=== PATIENT | male | born 1995 | race Caucasian/White ===

== ENCOUNTER 2019-10-16 00:32 | Inpatient (IN) | payer MEDICAID, SELFPAY ==
[2019-10-16] VITALS (18 sets, daily range): BP systolic 105–125; BP diastolic 64–86; PULSE 74–117; RESP 15–22; TEMP 36.6–37.5; O2SAT 10–100; BMI 19.1
--- NOTE | ~2019-10-16 | XR_ITS ---
EXAMINATION: XR ribs LT 2V w CXR 2V INDICATION: Left axillary and rib pain TECHNIQUE: PA COMPARISON: 04/20/2012 FINDINGS: A somewhat wedge-shaped, pleural-based airspace opacity is present in the left lower lobe. No pleural effusion or pneumothorax is identified. The cardiomediastinal silhouette is normal. The vi sualized osseous structures are unremarkable. IMPRESSION: 1. Left lower lobe airspace opacity which could be infectious/inflammatory or possibly pulmonary infa rct. CTA of the pulmonary arteries has been performed at the time of interpretation and will be repor mary separately. Reviewed, dictated and finalized at location A. IMPRESSION: 1. Left lower lobe airspace opacity which could be infectious/inflammatory or p ossibly pulmonary infarct. CTA of the pulmonary arteries has been performed at the time of interpretation and will be reported separately.
--- NOTE | ~2019-10-16 | CT_ITS ---
EXAMINATION: CTA chest PE protocol DATE: 10/16/2019 03:22 INDICATION: Shortness of breath and chest pain, recent drug use TECHNIQUE: Computed tomography angiography (CTA) of the chest was performed with 100 mL Omnipaque-350 intravenous contrast timed to evaluate the pulmonary arteries. Coronal maximum intensity projection 3D-reconstructions were created by the technologist. The dose-length product (DLP) was 201.54 mGy-cm. Automated exposure control and iterative reconstruction technique were employed. COMPARISON: None. FINDINGS: The pulmonary arteries are well-opacified. There are filling defects in subsegmental pulmon ramu artery branches of the left lower lobe. There is wedge-shaped, pleural-based airspace opacity in the distribution of the affected pulmonary artery distribution. In addition, there are multiple nodul es throughout the lungs, which measure up to 2.4 cm, some of which demonstrate central cavitation. Th ere is no pleural effusion or pneumothorax. The heart size is normal. There is mild left hilar lympha denopathy. IMPRESSION: 1. Pulmonary embolism in the subsegmental branches of the left lower lobe. 2. Wedge-shaped airspace opacity in the distribution of the affected pulmonary artery segment raises concern for pulmonary infarct. 3. Multiple pulmonary nodules scattered throughout the lungs, some of which demonstrate cavitation, c onsistent with infection/inflammation. Given history of drug use, septic emboli are a consideration. These findings were discussed with Dr. Shay Butts MD in the Emergency Department at 0351 hour s on 10/16/2019 by the [employer] Radiologist. Reviewed, dictated and finalized at location A. IMPRESSION: 1. Pulmonary embolism in the subsegmental branches of the left lower lobe. 2. Wedge-shaped airspace opacity in the distribution of the affected pulmonary artery segment raises concern for pulmonary infarct. 3. Multiple pulmonary nodules scattered throughout the lungs, some of which dem onstrate cavitation, consistent with infection/inflammation. Given history of d rug use, septic emboli are a consideration. These findings were discussed with Dr. Shay Butts MD in the Emergency D epartment at 0351 hours on 10/16/2019 by the [employer] Radiologist.
--- NOTE | 2019-10-16 02:26 | ED.GENADULT ---
HPI - General Adult General Chief complaint: Unspecified Stated complaint: Unspecified Time Seen by Provider: 10/16/19 02:03 History of Present Illness HPI narrative: Patient is a 24-year-old male who presents ER with left-sided chest pain. Ongoing over the last couple of weeks but significantly worsening over the last 2 days. Patient reports he has been using methamphetamine for several weeks and last used intravenous fentanyl 1-1/2 weeks ago. Denies any runny nose/sore throat but he has been having persisting cough with dyspnea. No lower extremity swelling. Pain is worse with any type of movement and with inhaling. No alleviating factors. Related Data Allergies Allergy/AdvReac Type Severity Reaction Status Date / Time codeine Allergy Mild UNKNOWN Verified 07/26/16 05:42 APPLE PEELINGS Allergy Mild THROAT Uncoded 12/30/13 19:30 ADRIEN Review of Systems Review of Systems: All systems reviewed & are unremarkable except as noted in HPI and below Constitutional: Constitutional: Denies chills, Denies fever(s) and Denies weakness ENT: Denies nasal congestion and Denies sore throat Cardiovascular: Cardiovascular: Reports chest pain, Denies rapid heart rate and Denies radiating jaw, neck or arm pain Respiratory: Respiratory: Reports cough, Reports dyspnea and Denies wheezing Gastrointestinal: Gastrointestinal: Denies abdominal pain, Denies diarrhea, Denies nausea and Denies vomiting PMFSH Past Medical History Medical History (Updated 10/16/19 @ 05:20 by Shay Butts MD) Asthma History of gastroschisis Surgical History Surgical History (Updated 10/16/19 @ 05:16 by Shay Butts MD) H/O abdominal surgery Gastroschisis repair Social History Social History (Updated 10/16/19 @ 05:16 by Shay Butts MD) Substance use type: amphetamines, opiates, IV drugs and methamphetamine Gender identity (if verbalized by the patient): Male Exam Narrative: Exam Narrative: GENERAL: Uncomfortable-appearing, well-nourished, and in no acute distress. HEAD: Normocephalic, atraumatic. EYES: PERRL and EOMI. ENT: Mucous membranes moist. CHEST: Clear to auscultation. No respiratory distress but has significant pain with inhaling. HEART: Tachycardic and regular. No murmur heard. Normal peripheral pulses. ABDOMEN: Soft, nontender, nondistended, normal active bowel sounds. EXTREMITIES: Normal range of motion. No edema. SKIN: Warm, dry, no rash. NEURO: Alert and oriented x3. Course Course Emergency Course: Patient informed of diagnosis and treatment plan. Will start on vancomycin for possible septic emboli that could be a result of endocarditis from IV drug abuse. Dr. Cobb order an echocardiogram for tomorrow and requests COVID swab. Patient will also be started on heparin for pulmonary embolism.. Vital Signs Vital signs: Vital Signs Temperature 98.3 F 10/16/19 00:34 Pulse Rate 117 H 10/16/19 00:34 Respiratory Rate 20 10/16/19 00:34 Blood Pressure 117/71 10/16/19 00:34 Pulse Oximetry 96 10/16/19 00:34 Temperature 98.3 F 10/16/19 00:34 Pulse Rate 82 10/16/19 04:56 Respiratory Rate 18 10/16/19 04:56 Blood Pressure 106/67 10/16/19 04:56 Pulse Oximetry 98 10/16/19 04:56 Medical Decision Making Vital Signs Vital Signs: Vital Signs Temperature 98.3 F 10/16/19 00:34 Pulse Rate 117 H 10/16/19 00:34 Respiratory Rate 20 10/16/19 00:34 Blood Pressure 117/71 10/16/19 00:34 Pulse Oximetry 96 10/16/19 00:34 Temperature 98.3 F 10/16/19 00:34 Pulse Rate 82 10/16/19 04:56 Respiratory Rate 18 10/16/19 04:56 Blood Pressure 106/67 10/16/19 04:56 Pulse Oximetry 98 10/16/19 04:56 Lab Data Result diagrams: 10/16/19 02:35 10/16/19 02:35 Labs: Lab Results 10/16/19 10/16/19 10/16/19 Range/Units 02:35 02:35 02:35 WBC 11.9 H (4.5-10.0) K/mm3 RBC 3.87 L (4.6-6.20) M/mm3 Hgb 10.3 L (14.0-
[2019-10-16 02:44] LABS: Basophils Percent Auto 0.3 % (0.2-1.2); Eosinophils Absolute Auto 0.1 K/mm3 (0-0.3); Eosinophils Percent Auto 0.5 % (0-4.4); Hematocrit 31.2 % (42.0-52.0); Hemoglobin 10.3 g/dL (14.0-18.0); Immature Granulocyte Absolute 0.17 K/mm3 (0.00-0.031); Immature Granulocyte Percent A 1.4 % (0-0.5); Lymphocytes Absolute Auto 1.34 K/mm3 (0.9-3.2); Lymphocytes Percent Auto 11.3 % (18.3-44.2); Mean Corpuscular Hemoglobin 26.6 pg (26-34); Mean Corpuscular Volume 80.6 fl (80-100); Monocytes Absolute Auto 0.8 K/mm3 (0.1-0.6); Neutrophils Absolute Auto 9.5 K/mm3 (1.3-6.7); Neutrophils Percent Auto 79.5 % (45.5-73.1); Platelet Count Result 265 k/mm3 (150-375); Red Blood Count 3.87 M/mm3 (4.6-6.20); Red Cell Distribution Width 13.8 % (11.5-14.5); White Blood Count 11.9 K/mm3 (4.5-10.0)
[2019-10-16] MEDS: MORPHINE SULFATE 4 MG/ML INJ IV PUSH ×6 (02:46→20:21)
[2019-10-16 02:52] LABS: INR 1.4; Prothrombin Time 16.8 Seconds (11.1-14.7)
[2019-10-16 02:53] LABS: Partial Thromboplastin Time 45.4 SECONDS (22.3-36.8)
[2019-10-16 03:04] LABS: Anion Gap 8 mmol/L (8-16); Blood Urea Nitrogen 11 mg/dL (9-20); Calcium 8.3 mg/dL (8.4-10.2); Carbon Dioxide 26 mmol/L (22-30); Chloride 99 mmol/L (98-107); Estimated Glomerular Filt Rate > 60; Glucose 123 mg/dL (75-110); Potassium 3.9 mmol/L (3.4-5.0); Sodium 133 mmol/L (137-145)
[2019-10-16] MEDS: KETOROLAC 30 MG/ML VIAL (*BKC) IV PUSH (03:48)
[2019-10-16] MEDS: HEPARIN SODIUM 5,000 UNITS/ML VIAL 5500 UNITS IV PUSH (04:46)
[2019-10-16] MEDS: HEPARIN SOD/D5W 100 UNITS/ML 25,000 UNITS/250 ML BAG 12 UNITS IV CONT (04:46)
--- NOTE | 2019-10-16 06:49 | ADMGEN ---
This patient, Tyrone Bermeo, was admitted to Intensive Care Unit-5 10/16/2019 at 0615. Patient/family oriented to hospital policies and general routines including ID bracelet, bed and alarms, visiting hours, pain management, procedures, bathroom and other care routines, personal items, smoking policy, room service/diet, and visiting hours. Valuables list has been completed. Information on how to activate the Rapid Response Team has been discussed. Patient/Family are encouraged to report perceived risks to care and to ask questions if they do not understand what they are told or what they should do.
[2019-10-16 11:24] LABS: Partial Thromboplastin Time 52.3 SECONDS (22.3-36.8)
[2019-10-16 11:31] LABS: Magnesium 2.3 mg/dL (1.6-2.3)
[2019-10-16 13:13] LABS: SARS-CoV-2 RNA PCR Negative
--- NOTE | 2019-10-16 16:31 | PM.IMHP ---
H&P: HPI History of Present Illness Date/Time: 10/16/19 16:31 Chief complaint: pulmonary embolism, septic emboli, covid pui Narrative: Tyrone Bermeo is a 24 year old male with history of illicit drug abuse presented emergency department with a complaint of left-sided chest pain for over 2 weeks and progressively getting worse patient states that he has been using amphetamine on daily basis for last 2 weeks, week ago he used IV fentanyl, patient denies any complaint of shortness of breath runny nose cough, COVID test was done and is negative, patient had a CTA of the chest showed patient has pulmonary emboli patient started on heparin drip, concerning for septic emboli due to IV drug use patient started on vancomycin, currently patient complains of chest pain patient is being treated with morphine, patient denies any fever or chills Review of Systems Review of Systems: All systems reviewed & are unremarkable except as noted in HPI and below PMFSH Past Medical History Medical History (Updated 10/16/19 @ 05:20 by Shay Butts MD) Asthma History of gastroschisis Surgical History Surgical History (Updated 10/16/19 @ 05:16 by Shay Butts MD) H/O abdominal surgery Gastroschisis repair Family History Family History (Updated 10/16/19 @ 06:28 by Jaida Colbert RN) Father Heart disease Myocardial infarct Schizophrenia Mother Asthma Grandparent Heart disease Diabetes mellitus Social History Social History (Updated 10/16/19 @ 05:16 by Shay Butts MD) Smoking packs per day: 0.5 Smoking cigarettes per day: 10.0 Years smoked: 10 Smoking pack-years: 5.00 Smoking status: Current every day smoker Tobacco type: cigarettes Second hand tobacco smoke exposure: No Smoking end date: 10/16/19 Alcohol intake: never Substance use: current Substance use type: marijuana and methamphetamine Other substance usage details: Fentanyl Gender identity (if verbalized by the patient): Male Spiritual care concerns: No Meds Home Medications and Allergies Allergies Allergy/AdvReac Type Severity Reaction Status Date / Time codeine Allergy Mild UNKNOWN Verified 07/26/16 05:42 APPLE PEELINGS Allergy Mild THROAT Uncoded 12/30/13 19:30 SWELLS Vital Signs Vital Signs - 24 hr 10/16/19 00:34 10/16/19 01:51 10/16/19 02:45 Temperature 98.3 F Pulse Rate 117 H 103 H 92 Respiratory Rate 20 19 19 Blood Pressure 117/71 125/64 115/86 Pulse Oximetry 96 98 98 10/16/19 03:25 10/16/19 04:07 10/16/19 04:56 Temperature Pulse Rate 89 98 82 Respiratory Rate 19 21 H 18 Blood Pressure 113/76 114/68 106/67 Pulse Oximetry 98 10 L 98 10/16/19 05:44 10/16/19 05:46 10/16/19 06:07 Temperature 98.3 F Pulse Rate 74 79 Respiratory Rate 19 18 Blood Pressure 106/67 106/67 Pulse Oximetry 98 98 100 10/16/19 06:23 10/16/19 08:00 10/16/19 10:00 Temperature 97.8 F 98.3 F Pulse Rate 80 82 85 Respiratory Rate 15 16 Blood Pressure 105/70 114/83 Pulse Oximetry 100 98 10/16/19 12:00 10/16/19 16:00 Temperature 98.1 F 99.1 F Pulse Rate 99 92 Respiratory Rate 16 22 H Blood Pressure 117/86 113/78 Pulse Oximetry 100 99 Exam Narrative: Exam Narrative: patient appears chronically ill and malnourished older than his age Const: General: no acute distress and uncomfortable HENMT: General nose exam: Normal nares present Mouth: Yes moist mucous membranes Eyes: General: appearance normal, both eyes and all related structures Sclera: sclerae normal Neck: Neck: supple Resp: Other: bilateral fair air entry with rhonchi Cardio: Rate: regular rate Rhythm: regular rhythm GI: GI Palp: Yes Soft to palpation Auscultation: normal bowel sounds Skin: General skin exam: normal color Neuro: Speech: normal speech Sensory Exam: normal sensation Extrem: General: normal to inspection Psych: Affect: Anxious affect present H&P: Results Labs Labs: Short CBC
[2019-10-16 18:17] LABS: Partial Thromboplastin Time 58.1 SECONDS (22.3-36.8)
--- NOTE | 2019-10-16 18:23 | PC.NURSE ---
This patient, Tyrone Bermeo, was transferred to [facility] on 10/16/19 at 1818 . Personal belongings sent with patient. Report given to Abi MAX. Appropriate documentation sent with patient.
--- NOTE | 2019-10-16 18:30 | PC.NURSE ---
Received patient from ICU via wheelchair. Patient settled in room.
[2019-10-16] MEDS: HEPARIN SODIUM 5,000 UNITS/ML VIAL 2500 UNITS IV PUSH (18:42)
[2019-10-16] MEDS: HEPARIN SOD/D5W 100 UNITS/ML 25,000 UNITS/250 ML BAG 16 UNITS IV CONT (23:22)
[2019-10-17] VITALS (9 sets, daily range): BP systolic 111–127; BP diastolic 68–75; PULSE 105–118; RESP 16–18; TEMP 37–37.5; O2SAT 96–98
--- NOTE | 2019-10-17 | ECHO_ITS ---
Patient Info Name: Tyrone Bermeo Age: 24 years : 1995 Gender: Male Ht: 72 in Wt: 140 lbs BSA: 1.78 m2 HR: 107 bpm BP: 127 / 68 mmHg Heart Rhythm: Sinus Rhythm Technical Quality: Good Exam Date: 10/17/2019 11:07 AM Exam Location: [facility] Patient Status: Inpatient Admit Date: 10/16/2019 Staff Ordering Physician: Kofi Okeefe MD Laceworker: Genie Montesinos RCS Attending Provider: Albin Chisholm MD Exam Type: CA echo doppler color flow Study Info Indications - syncope hx/o IV drug abuse Complete two-dimensional, color flow and Doppler transthoracic echocardiogram is performed. Summary 1. Complete two-dimensional, color flow and Doppler transthoracic echocardiogram is performed. 2. Left ventricular chamber dimension is normal. 3. Left ventricular systolic function is normal, estimated at 60-65%. 4. There is no increased left ventricular wall thickness. 5. The left ventricular diastolic function is normal. 6. Right ventricular chamber dimension is mildly enlarged. 7. There is mild tricuspid valve regurgitation. 8. Mild pulmonary hypertension, estimated pulmonary arterial systolic pressure is 38 mmHg. 9. Large tricuspid valve vegetation visualized. 10. 2.5 x 2.1 cm large hypermobile tricuspid valve vegetation is seen. Left Ventricle Left ventricular chamber dimension is normal. Left ventricular systolic function is normal, estimated at 60-65%. There is no increased left ventricular wall thickness. The left ventricular diastolic function is normal. Right Ventricle Right ventricular chamber dimension is mildly enlarged. Right ventricular systolic function is normal. Left Atria Left atrial chamber dimension is normal. Right Atria Right atrial chamber dimension is normal. Atrial Septum Intact interatrial septum visualized by color flow imaging. Aortic Valve The aortic valve is probable trileaflet. There is no aortic valve sclerosis. There is no aortic valve stenosis. There is trace aortic valve regurgitation. Pulmonic Valve The pulmonic valve is normal. There is no pulmonic valve stenosis. There is trace pulmonic regurgitation. Mitral Valve The mitral valve has normal leaflets. There is no mitral valve stenosis. There is trace mitral valve regurgitation. Tricuspid Valve There is no significant tricuspid valve stenosis. There is mild tricuspid valve regurgitation. Mild pulmonary hypertension, estimated pulmonary arterial systolic pressure is 38 mmHg. Large tricuspid valve vegetation visualized. 2.5 x 2.1 cm large hypermobile tricuspid valve vegetation is seen. Pericardium/Pleural The pericardium appears normal. There is no pericardial effusion. Aorta The aortic root size at the sinus of Valsalva is normal. The prox ascending aorta size is normal. Left Ventricular Outflow Tract Name Value Normal LVOT 2D LVOT Diameter 2.0 cm LVOT Doppler LVOT Peak Gradient 5 mmHg LVOT Mean Gradient 3 mmHg LVOT VTI 20 cm LVOT VTI/AV VTI Ratio
[2019-10-17] MEDS: MORPHINE SULFATE 4 MG/ML INJ IV PUSH ×5 (00:12→13:48)
[2019-10-17 01:09] LABS: Partial Thromboplastin Time 59.7 SECONDS (22.3-36.8)
[2019-10-17] MEDS: HEPARIN SODIUM 5,000 UNITS/ML VIAL 2500 UNITS IV PUSH ×2 (01:17→13:59)
[2019-10-17 07:12] LABS: Basophils Absolute Auto 0.1 K/mm3 (0.0-0.1); Basophils Percent Auto 0.5 % (0.2-1.2); Eosinophils Absolute Auto 0.1 K/mm3 (0-0.3); Eosinophils Percent Auto 0.7 % (0-4.4); Hematocrit 30.6 % (42.0-52.0); Hemoglobin 9.9 g/dL (14.0-18.0); Immature Granulocyte Absolute 0.18 K/mm3 (0.00-0.031); Immature Granulocyte Percent A 1.4 % (0-0.5); Lymphocytes Percent Auto 18.9 % (18.3-44.2); Mean Corpuscular HGB Conc 32.4 g/dl (32-36); Mean Corpuscular Hemoglobin 25.9 pg (26-34); Mean Corpuscular Volume 80.1 fl (80-100); Mean Platelet Volume 9.5 fl (7.4-10.4); Monocytes Absolute Auto 1.3 K/mm3 (0.1-0.6); Neutrophils Absolute Auto 9.1 K/mm3 (1.3-6.7); Neutrophils Percent Auto 68.5 % (45.5-73.1); Platelet Count Result 321 k/mm3 (150-375); Red Blood Count 3.82 M/mm3 (4.6-6.20); Red Cell Distribution Width 13.8 % (11.5-14.5); White Blood Count 13.2 K/mm3 (4.5-10.0)
[2019-10-17 07:22] LABS: Partial Thromboplastin Time 71.5 SECONDS (22.3-36.8)
[2019-10-17 07:26] LABS: Alanine Aminotransferase 19 U/L (4-50); Albumin Level 3.2 g/dL (3.5-5.1); Alkaline Phosphatase 109 U/L (38-126); Anion Gap 6 mmol/L (8-16); Aspartate Amino Transferase 23 U/L (17-59); Bilirubin,Total 0.5 mg/dL (0.2-1.3); Blood Urea Nitrogen 8 mg/dL (9-20); Calcium 8.5 mg/dL (8.4-10.2); Carbon Dioxide 25 mmol/L (22-30); Chloride 98 mmol/L (98-107); Estimated CRCL calculation 112 ml/min; Estimated Glomerular Filt Rate > 60; Glucose 130 mg/dL (75-110); Potassium 4.1 mmol/L (3.4-5.0); Sodium 129 mmol/L (137-145)
[2019-10-17 13:17] LABS: Partial Thromboplastin Time 66.1 SECONDS (22.3-36.8)
[2019-10-17] MEDS: HEPARIN SOD/D5W 100 UNITS/ML 25,000 UNITS/250 ML BAG 18 UNITS IV CONT (13:54)
--- NOTE | 2019-10-17 14:44 | PM.CNCAR ---
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 Already displaying symptoms embolization to lungs. Patient needs a BRE as well as CT surgical evaluation for possible valve replacement versus angio VAC procedure. Will also obviously need ID consultation and IV antibiotics. Given the fact he has signs of RV enlargement already and given the size of the vegetation, I think it is prudent to transfer him to a tertiary care facility. I have discussed this with CT surgery at [facility] as well as the cardiology team at [facility] who have agreed. Will arrange transfer. Patient should be admitted under the hospitalist service with id consultation, Cardiology consultation, CT surgery consultation. I have also discussed this with the patient's mother who is in agreement. Patient himself is also okay with this plan. (3) Pleuritic chest pain: Code(s): R07.81 - Pleurodynia Status: Acute Assessment and Plan: Related to pulmonary emboli (4) Enlarged RV (right ventricle): Code(s): I51.7 - Cardiomegaly Status: Acute Assessment and Plan: related a septic pulmonary emboli (5) IV drug user: Code(s): F19.90 - Other psychoactive substance use, unspecified, uncomplicated Status: Acute History of Present Illness History of Present Illness Consult date/time: 10/17/19 14:44 Requesting physician: Kofi Okeefe MD Consult reason: Other ( vegetation) Reason For Visit: pulmonary embolism, septic emboli, covid pui Narrative: date of service 10/17/2019 Reason consultation: Tricuspid valve endocarditis History: Patient is a 24-year-old male who has history of IV drug use. He used about 2 weeks ago after having a period of time which she has stopped using. Before that he had been using what sounds to be routinely for about 2 months ago. He uses IV fentanyl. He came to the hospital because of shortness of breath and pleuritic chest pain over the past couple of weeks. He admits to night sweats for the past couple of months. COVID test was negative but CT did show evidence of pulmonary emboli. Echocardiogram was performed and he was found to have a large tricuspid valve vegetation measuring 2.5 cm x 2.1 cm. It is hypermobile and appears pedunculated. Cardiology consultation was requested. Patient is still short of breath but better. Still has significant pleuritic chest pain. He denies any recent paroxysmal nocturnal dyspnea, orthopnea, edema, presyncope. He has been started on vancomycin as well as a heparin drip Review of Systems Review of Systems: All systems reviewed & are unremarkable except as noted in HPI and below Constitutional: Constitutional: Reports weakness Eyes: Eyes: Denies blurry vision ENT: Reports Normal hearing present Cardiovascular: Cardiovascular: Reports chest pain Respiratory: Respiratory: Reports dyspnea Gastrointestinal: Gastrointestinal: Denies abdominal pain Genitourinary: Genitourinary: Denies dysuria Musculoskeletal: Musculoskeletal: Denies neck pain Integumentary/Breasts: Skin/Breast: Denies dry skin Neurologic: Denies headache(s) Psychiatric: Psychiatric: Denies anxiety Endocrine: Endocrine: Denies excessive sweating Hematologic/Lymphatic: Hematologic/Lymphatic: Denies easy bleeding Allergic/Immunologic: Allergic/Immunologic: Denies lip swelling PMFSH Past Medical History Medical History Asthma History of gastroschisis Surgical History Surgical History H/O
--- NOTE | 2019-10-17 16:10 | PM.TDS ---
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 - Rheumatic tricuspid valve disease, unspecified Status: Acute Assessment and Plan: Tyrone Bermeo is a 24 year old male Chief complaint: pulmonary embolism, septic emboli, covid pui Narrative: Tyrone Bermeo is a 24 year old male with history of illicit drug abuse presented emergency department with a complaint of left-sided chest pain for over 2 weeks and progressively getting worse patient states that he has been using amphetamine on daily basis for last 2 weeks, week ago he used IV fentanyl, patient denies any complaint of shortness of breath runny nose cough, COVID test was done and is negative, patient had a CTA of the chest showed patient has pulmonary emboli patient started on heparin drip, concerning for septic emboli due to IV drug use patient started on vancomycin, currently patient complains of chest pain patient is being treated with morphine, patient denies any fever or chills, patient was seen by Cardiology patient had cardiac echo which showed a Large tricuspid valve vegetation visualized and 2.5 x 2.1 cm large hypermobile tricuspid valve vegetation was seen. cardiology is recommending patient will need to be seen cardiothoracic surgeon and patient is being transferred to [facility] for further evaluation and management by the fire support specialist, patientis clinically stable and agreeable with plan (2) Pulmonary embolism and infarction: Code(s): I26.99 - Other pulmonary embolism without acute cor pulmonale Status: Acute Assessment and Plan: plan is above (3) Septic pulmonary embolism: Code(s): I26.90 - Septic pulmonary embolism without acute cor pulmonale Status: Acute Assessment and Plan: plan is above. Transfer Discharge Sum: Med Medications Active and Home Medications: Home Medications No Home Medications 10/17/19 [History Confirmed 09/03/20] Active Medications Acetaminophen (Tylenol Tablet) 650 mg PO Q4H PRN PRN Reason: Mild Pain (1-3) or Fever Hydrocodone Bitart/Acetaminophen ([place] 5-325 Mg) 1 tab PO Q4H PRN PRN Reason: Pain Rated 4-6 Last Admin: 10/16/19 13:09 Dose: 1 tab Documented by: Heparin Sodium (Porcine) (Heparin Sodium) 5,500 units IV PUSH PRN PRN PRN Reason: aPTT less than 55 seconds Heparin Sodium (Porcine) (Heparin Sodium) 2,500 units IV PUSH PRN PRN PRN Reason: aPTT 55 - 70 seconds Last Admin: 10/17/19 13:59 Dose: 2,500 units Documented by: Hydromorphone HCl (Dilaudid Inj) 1 mg IV PUSH Q2H PRN PRN Reason: Pain Rated 10 Last Admin: 10/17/19 15:17 Dose: 1 mg Documented by: Heparin Sodium/Dextrose (Heparin Sodium/D5w 100 Units/Ml) 25,000 units in 250 mls @ 18 mls/hr IV CONT .[id number] [facility]; Protocol Last Admin: 10/17/19 13:54 Dose: 1,800 units/hr, 18 mls/hr Documented by: Vancomycin HCl (Vancomycin 1,000 Mg/D5w 250 Ml) 1,000 mg in 250 mls @ 250 mls/hr IVPB Q12H [facility] Last Infusion: 10/17/19 07:21 Dose: Infused Documented by: Morphine Sulfate (Morphine Sulfate Inj) 4 mg IV PUSH Q2H PRN PRN Reason: Pain Rated 7-10 Last Admin: 10/17/19 13:48 Dose: 4 mg Documented by: Transfer Discharge Sum: Hosp Hospital Course Hospital course: Tyrone Bermeo is a 24 year old male Chief complaint: pulmonary embolism, septic emboli, covid pui Narrative: Tyrone Bermeo is a 24 year old male with history of illicit
[2019-10-17 17:56] LABS: Vancomycin Trough < 5.0 ug/mL (10.0-20.0)
[2019-10-17 20:37] LABS: Partial Thromboplastin Time 72.3 SECONDS (22.3-36.8)
--- NOTE | 2019-10-17 21:12 | PC.NURSE ---
ptt therapeutic no change in rate. Next ptt is for 10/18/2019 0300.
[2019-10-18] VITALS: PULSE 124
--- NOTE | 2019-10-18 00:41 | PC.NURSE ---
called note to Emmett at [facility]. Pt being transferred to room 827-2. [facility] unable to transfer pt. Sania called and will be here to mixing picker tender pt at 0100 to 0115.
== END 2019-10-18 01:20 | disposition short-term general hospital (02) | DRG 200 ==
LOC: ANHED 05:20 → ANHICU 06:51 → ANH2MED 10-17 10:54 → ANHICU 10-23 08:20
PROVIDERS: Family Medicine; Admitting Provider Family Medicine; Emergency Provider Emergency Medicine; Visit Provider Nurse Practitioner Adult Health
DX: I01.1 Acute rheumatic endocarditis (principal); I26.90 Septic pulmonary embolism without acute cor pulmonale; F15.10 Other stimulant abuse, uncomplicated; F11.10 Opioid abuse, uncomplicated; Z20.828 Contact with and (suspected) exposure to other viral communicable diseases
CPT/HCPCS: 36415; 71046; 71100; 71275; 80048; 80053; 80202; 83735; 85025; 85610; 85730; 87040; 87077; 87186; 87635; 93306; 96374; 96375; 99291; A9270; C9803; J1170; J1644; J1885; J2270; J3370; Q9967; U0003

== ENCOUNTER 2020-04-04 11:57 | Emergency (ER) | payer OTHER, SELFPAY ==
--- NOTE | ~2020-04-04 | XR_ITS ---
EXAMINATION: XR chest 2V DATE: 04/04/2020 12:16 INDICATION: Midsternal chest pain TECHNIQUE: Frontal and lateral views of the chest are obtained COMPARISON: 10/16/2019 FINDINGS: The lungs are free of acute opacities. An area of scarring is seen in the left lower lobe a t the site of prior pneumonia. There are changes of interval cardiac surgery. There is no pleural eff usion or pneumothorax. Heart size is normal. The visualized bones and soft tissues are unremarkable. IMPRESSION: 1. No acute cardiopulmonary abnormality. Changes of interval cardiac surgery. Reviewed, dictated and finalized at location A. [employer]
[2020-04-04 11:59] VITALS: BP 137/94; PULSE 103; RESP 17; TEMP 36.3; O2SAT 97
--- NOTE | 2020-04-04 12:00 | ECG_ITS ---
Measurements Intervals [place] Rate: 100 P: 81 NH: 127 QRS: 100 QRSD: 93 T: -63 QT: 343 QTc: 444 Interpretive Statements SINUS TACHYCARDIA RIGHT ATRIAL ENLARGEMENT POSSIBLE LEFT ATRIAL ENLARGEMENT DELAYED PRECORDIAL R/S TRANSITION BORDERLINE ST-T WAVE ABNORMALITY- INFERIOR LEADS BASELINE ARTIFACT- II, III, AVR, AVF, V4-V6 RIGHT AXIS DEVIATION Electronically Signed On 04-04-2020 14:44:56 TAFFY CANDY MAKER by Rocky Vincent D.O.
[2020-04-04 12:03] VITALS: PULSE 103
[2020-04-04 12:20] LABS: Basophils Absolute Auto 0.1 K/mm3 (0.0-0.1); Basophils Percent Auto 0.9 % (0.2-1.2); Eosinophils Absolute Auto 0.1 K/mm3 (0-0.3); Eosinophils Percent Auto 0.5 % (0-4.4); Hematocrit 47.1 % (42.0-52.0); Hemoglobin 15.7 g/dL (14.0-18.0); Immature Granulocyte Absolute 0.03 K/mm3 (0.00-0.031); Immature Granulocyte Percent A 0.3 % (0-0.5); Lymphocytes Absolute Auto 2.44 K/mm3 (0.9-3.2); Lymphocytes Percent Auto 24.9 % (18.3-44.2); Mean Corpuscular HGB Conc 33.3 g/dl (32-36); Mean Corpuscular Hemoglobin 28.6 pg (26-34); Mean Corpuscular Volume 85.9 fl (80-100); Mean Platelet Volume 9.7 fl (7.4-10.4); Monocytes Absolute Auto 0.9 K/mm3 (0.1-0.6); Monocytes Percent Auto 9.5 % (2.6-8.5); Neutrophils Absolute Auto 6.3 K/mm3 (1.3-6.7); Neutrophils Percent Auto 63.9 % (45.5-73.1); Platelet Count Result 364 k/mm3 (150-375); Red Blood Count 5.48 M/mm3 (4.6-6.20); Red Cell Distribution Width 15.6 % (11.5-14.5); White Blood Count 9.8 K/mm3 (4.5-10.0)
[2020-04-04 12:29] LABS: INR 1.1; Partial Thromboplastin Time 30.3 SECONDS (22.3-36.8); Prothrombin Time 14.4 Seconds (11.1-14.7)
[2020-04-04 12:32] LABS: Anion Gap 8 mmol/L (8-16); Blood Urea Nitrogen 13 mg/dL (9-20); Calcium 8.9 mg/dL (8.4-10.2); Carbon Dioxide 27 mmol/L (22-30); Chloride 106 mmol/L (98-107); Estimated CRCL calculation 67 ml/min; Estimated Glomerular Filt Rate > 60; Glucose 96 mg/dL (75-110); Potassium 3.9 mmol/L (3.4-5.0); Sodium 141 mmol/L (137-145)
--- NOTE | 2020-04-04 12:38 | ED.CHESTPAIN ---
HPI - Chest Pain General Chief Complaint: Chest Pain Stated Complaint: cp Time Seen by Provider: 04/04/20 12:22 Source: patient Mode of arrival: EMS History of Present Illness HPI narrative: Patient is 25 years old white male presents with stress related chest pain. Patient been homeless in the last few days/weeks,, yesterday used methamphetamine. Currently complaining of itching and restlessness because he did not take shower for a while. And would like to have a bath. Later his mother arrived to the emergency room and he promised to take him home and keep him for few days until he gets better. Currently patient denying any chest pain, shortness of breath, fever, chills, nausea, vomiting, back pain, headache. Related Data Allergies Allergy/AdvReac Type Severity Reaction Status Date / Time apple Allergy Severe Swelling Verified 04/04/20 12:03 of Lip/Tongue/Throat codeine Allergy Mild UNKNOWN Verified 04/04/20 11:59 APPLE PEELINGS Allergy Mild THROAT Uncoded 12/30/13 19:30 SWELLS Review of Systems Review of Systems: Narrative: CONSTITUTIONAL: Denies fever, chills, or sweats. EYES: Denies visual changes, redness, or discharge. ENT: Denies rhinorrhea, congestion, sore throat, or otalgia. CARDIOVASCULAR: Denies chest pain, palpitations, or edema. RESPIRATORY: Denies cough or dyspnea. GASTROINTESTINAL: Denies abdominal pain, nausea, vomiting, or diarrhea. GENITOURINARY: Denies dysuria or hematuria. SKIN: Denies rash or itching. MUSCULOSKELETAL: Denies back pain, joint pain, or myalgia. NEUROLOGIC: Denies headache, numbness, or weakness. PSYCHIATRIC: Denies anxiety or depression. 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 Surgical History Surgical History H/O abdominal surgery Gastroschisis repair Family History Family History Father Heart disease Myocardial infarct Schizophrenia Mother Asthma Grandparent Heart disease Diabetes mellitus Social History Social History Smoking packs per day: 0.5 Smoking cigarettes per day: 10.0 Years smoked: 10 Smoking pack-years: 5.00 Smoking status: Current every day smoker Tobacco type: cigarettes Second hand tobacco smoke exposure: No Smoking end date: 10/16/19 Alcohol intake: never Substance use: current Substance use type: marijuana and methamphetamine Other substance usage details: Fentanyl Gender identity (if verbalized by the patient): Male Spiritual care concerns: No Exam Narrative: Exam Narrative: General appearance: Well-developed, well-nourished Skin: Scattered itching skin rash patient still me because he did not have a shower for a while Head: Normocephalic, nontraumatic Eyes: Clear conjunctiva ENT: Oropharynx normal, ears normal, nose normal Neck: Supple, nontender Chest and respiratory: Airway patent, no respiratory distress, no accessory muscle use Heart: Regular rate/rhythm Abdomen: Soft, nontender, no organomegaly, quiet bowel sounds Vascular: Normal peripheral pulses, normal capillary refill. Musculoskeletal: Normal range of motion, nontender back Neurologic: Alert and oriented ?3, BIBLE TEACHER is normal as tested, no gross motor deficit Course Course Emergency Course: Improved Vital Signs Vital signs: Vital Signs Temperature 36.3 C L 04/04/20 11:59 Pulse Rate 103 H 04/04/20 11:59 Respiratory Rate 17 04/04/20 11:59 Blood Pressure 137/94 H 04/04/20 11:59
[2020-04-04 12:44] LABS: Troponin I < 0.012 ng/mL (0.000-0.034)
[2020-04-04] MEDS: LORazepam INJ (*CRX) 2 MG/ML VIAL (13:42)
[2020-04-04 14:18] VITALS: BP 144/66; PULSE 101; RESP 17; O2SAT 97
== END 2020-04-04 14:19 | disposition home or self-care (01) ==
PROVIDERS: Emergency Provider Emergency Medicine
DX: F32.9 Major depressive disorder, single episode, unspecified (principal); F41.9 Anxiety disorder, unspecified; F15.10 Other stimulant abuse, uncomplicated; J45.909 Unspecified asthma, uncomplicated; F17.210 Nicotine dependence, cigarettes, uncomplicated; I07.9 Rheumatic tricuspid valve disease, unspecified; R00.0 Tachycardia, unspecified; R94.31 Abnormal electrocardiogram [ECG] [EKG]
CPT/HCPCS: 36415; 71046; 80048; 84484; 85025; 85610; 85730; 93005; 96374; 99284; J2060

== ENCOUNTER 2021-08-09 19:13 | Emergency (ER) | payer OTHER, SELFPAY ==
--- NOTE | ~2021-08-09 | XR_ITS ---
EXAMINATION: XR chest 1V portable Exam Date/Time: 08/09/2021 20:00 CDT HISTORY: ams Comparison: 04/04/2020. RESULT: Lines, tubes, and devices: Epicardial pacing wires. Intact sternotomy wires. Valve replacement. Lungs and pleura: Minimal peripheral reticular opacities. Cardiomediastinal silhouette: Stable cardiomediastinal silhouette. Other: No acute osseous or upper abdominal finding. IMPRESSION: Interval cardiothoracic surgery, with valve replacement. Pulmonary findings may reflect mild intersti tial pulmonary edema. Reviewed, dictated and finalized at location K. IMPRESSION: Interval cardiothoracic surgery, with valve replacement. Pulmonary findings may reflect mild interstitial pulmonary edema.
[2021-08-09 19:38] VITALS: BP 108/70; PULSE 107; RESP 14; TEMP 36.6; O2SAT 96
[2021-08-09] MEDS: NALOXONE HCL 0.4 MG/ML VIAL (19:53)
--- NOTE | 2021-08-09 19:57 | ED.OVERDOSE ---
HPI - Overdose General Chief Complaint: Overdose Stated Complaint: fentanyl relapse Time Seen by Provider: 08/09/21 19:48 History of Present Illness HPI Narrative: 26-year-old male presented to the emergency room via EMS for evaluation of a fentanyl overdose. Patient states that he had not used fentanyl for the last few days but did use today. Patient was found on the side of the road. Patient was treated with 0.4 Narcan in the ED for hypoxia and is more alert and appropriate. Patient is having some residual nausea. Patient does have a healed surgical incision on his sternum from endocarditis in from reported IV drug use. Patient denies any current chest pain or shortness of breath. Related Data Allergies Allergy/AdvReac Type Severity Reaction Status Date / Time apple Allergy Severe Swelling Verified 08/09/21 20:09 of Lip/Tongue/Throat codeine Allergy Mild UNKNOWN Verified 08/09/21 20:09 APPLE PEELINGS Allergy Mild THROAT Uncoded 08/09/21 20:09 SWELLS Review of Systems Review of Systems: CONSTITUTIONAL: Denies fever, chills, or sweats. EYES: Denies visual changes, redness, or discharge. ENT: Denies rhinorrhea, congestion, sore throat, or otalgia. CARDIOVASCULAR: Denies chest pain, palpitations, or edema. RESPIRATORY: Denies cough or dyspnea. GASTROINTESTINAL: Denies any abdominal pain but does have nausea. GENITOURINARY: Denies dysuria or hematuria. SKIN: Denies rash or itching. MUSCULOSKELETAL: Denies back pain, joint pain, or myalgia. NEUROLOGIC: Denies headache, numbness, or weakness. 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 Surgical History Surgical History H/O abdominal surgery Gastroschisis repair Family History Family History Father Heart disease Myocardial infarct Schizophrenia Mother Asthma Grandparent Heart disease Diabetes mellitus Social History Social History Smoking packs per day: 0.5 Smoking cigarettes per day: 10.0 Years smoked: 10 Smoking pack-years: 5.00 Smoking status: Current every day smoker Tobacco type: cigarettes Second hand tobacco smoke exposure: No Smoking end date: 10/16/19 Alcohol intake: never Substance use: current Substance use type: marijuana and methamphetamine Other substance usage details: Fentanyl Gender identity (if verbalized by the patient): Male Spiritual care concerns: No Exam Narrative: APPEARANCE: Well appearing, no pain, no distress, well-nourished. HEAD: normocephalic, atraumatic. EYES: PERRLA/EOMI, conjunctivae clear. NOSE: Normal no drainage THROAT: Pharynx clear, no exudate. NECK: Supple. No adenopathy, no masses. RESPIRATORY: Airway patent, respirations nonlabored. Clear to auscultation bilaterally, no rales, rhonchi, wheezing. CARDIOVASCULAR: Regular rate and rhythm without murmurs rubs or gallops. ABDOMINAL: Soft, nontender, nondistended, normal bowel sounds MUSCULOSKELETAL: Moves all extremities. Strength/ROM intact, No edema, No calf tenderness. NEURO: Alert. Cranial nerves II through XII intact. Grossly intact SKIN: Healing incision sternum. PSYCHIATRIC: Normal affect/mood. Course Course Emergency Course: Patient does feel improved. Patient has not required any additional Narcan. Patient is attempting to seek outpatient rehab treatment. Patient was reinforced on his desire to seek substance abuse rehab. Patient was educated on reasons to return to the emergency department. All questions and concerns were addressed. Vital Signs Vital signs: Vital Signs Temperature 97.9 F 08/09/21 19:38 Pulse Rate 107 H 08/09/21 19:38 Respiratory Rate 14 08/09/21 19:38 Blood Pressure 108/70 08/09/21 19:38 Pulse Oximet
[2021-08-09] MEDS: SODIUM CHLORIDE 0.9% IV 1,000 ML 999 ML IV CONT (20:06)
[2021-08-09] MEDS: METOCLOPRAMIDE HCL INJ 10 MG/2 ML VIAL IV PUSH (20:06)
[2021-08-09] MEDS: ONDANSETRON INJ 4 MG/2 ML VIAL IV PUSH (20:07)
[2021-08-09 20:09] VITALS: BP 107/78; PULSE 96; RESP 16; O2SAT 100
[2021-08-09 20:10] VITALS: RESP 18
--- NOTE | 2021-08-09 22:45 | PC.NURSE ---
pt. requested that mother be called and updated. No answer so a message was left. He then requested that his girlfriend was called at [phone]. She answered and said that she was possibly coming up here Pt. was updated with this information.
[2021-08-09 23:36] VITALS: BP 106/77; PULSE 87; RESP 18; O2SAT 97
== END 2021-08-09 23:31 | disposition home or self-care (01) ==
PROVIDERS: Emergency Provider Emergency Medicine
DX: T40.411A Poisoning by fentanyl or fentanyl analogs, accidental (unintentional), initial encounter (principal); J45.909 Unspecified asthma, uncomplicated; Z87.891 Personal history of nicotine dependence
CPT/HCPCS: 71045; 96361; 96374; 96375; 99284; J2310; J2405; J2765; J7030